=== PATIENT | male | born 1955 | race Caucasian/White ===

== ENCOUNTER 2018-09-22 07:16 | Day surgery (SDC) | payer OTHER ==
[2018-09-22] MEDS ORDERED: MIDAZOLAM 1 MG/ML 2 ML INJ ×3 (10:17)
[2018-09-22] MEDS ORDERED: FENTAnyl 50 MCG/ML VIAL (10:17)
== END 2018-09-22 11:08 | disposition home or self-care (01) ==
LOC: GIL 07:16
DX: Z12.11 Encounter for screening for malignant neoplasm of colon (principal); K64.4 Residual hemorrhoidal skin tags; K57.30 Diverticulosis of large intestine without perforation or abscess without bleeding; Z86.010 Personal history of colon polyps
CPT/HCPCS: 45378